=== PATIENT | male | born 1990 | race Caucasian/White ===

== ENCOUNTER 2017-10-21 10:21 | Inpatient (IN) | payer SELFPAY ==
[2017-10-21 10:38] LABS: Actual Bicarbonate (HCO3a) 22.5 mEq/L (22-26); Analyzer IN Cardio ER; Base Excess (BEa) -2.9 mEq/L (0 (+/-) 2.5); CO2 Tension 41.8 mmHg (35.0-45.0); Calcium, Ionized 1.2 mmol/L (1.12-1.30); Hematocrit-ABG 38.8 % (42.0-52.0); O2 Tension (PaO2) 52.9 mmHg (80.0-100.0); Puncture Site LRA; pH, Arterial 7.35 (7.35-7.45)
[2017-10-21 12:16] LABS: Hemoglobin 12.7 g/dL (14.0-18.0); Mean Corpuscular HGB CONC 32.1 g/dL (32.0-36.0); Mean Corpuscular Hemoglobin 30.4 pg (27.0-31.0); Mean Corpuscular Volume 94.7 fl (80.0-94.0); Mean Platelet Volume 6.7 fL (7.4-10.4); Platelet Count 157 thou/uL (130-400); RBC Distribution Width 12.6 % (11.5-14.5); Red Blood Cell (RBC) Count 4.16 mill/uL (4.70-6.10); White Blood Cell (WBC) Count 0.7 thou/uL (4.8-10.8)
[2017-10-21 12:22] LABS: Anion Gap 11 mmol/L (10-20); BUN (Urea Nitrogen) 21 mg/dL (8.9-20.6); Calc. Creatinine Clearance 0 mL/min (70-130); Calcium 7.8 mg/dL (7.8-10.44); Carbon Dioxide 21 mmol/L (22-29); Chloride 110 mmol/L (98-107); Estimated GFR-MDRD Greater than 90; Glucose 73 mg/dL (70-105); Magnesium 1.6 mg/dL (1.6-2.6); Sodium 138 mmol/L (136-145)
[2017-10-21 12:33] LABS: Band 16 % (5-11); Eosinophils 8 % (0-10); Lymphocytes 64 % (21-51); MDiff Complete? YES; Monocytes 12 % (0-10); PLT Morphology Comment Appears Adequate
[2017-10-21] MEDS ORDERED: Sodium Chloride 0.9% 1,000 ML IV SCH (16:00)
[2017-10-21 16:04] LABS: BF Color Red; Body Fluid Source THORACENTESIS FLD; Clarity Cloudy/Turbid (Clear); Tube # EDTA
[2017-10-21 16:05] LABS: RBC Count-Automated 49000 /cumm; WBC/NonHematic-Auto 9340 /cumm
[2017-10-21 16:22] LABS: Fluid, Triglycerides 11 mg/dL (Not Available); Pleural Fluid, Amylase Less than 30 U/L (Not Available); Pleural Fluid, Glucose 51 mg/dL; Pleural Fluid, LDH 759 U/L (Not Available); Pleural Fluid, Protein 2.3 g/dL
--- NOTE | 2017-10-21 16:23 | RAD ---
CHEST ONE VIEW: History: Status post thoracentesis. Comparison: 10-21-17 FINDINGS: Persistent opacification right hemithorax. No evidence of pneumothorax. Stable configuration of the c ardiac silhouette. Stable aeration of the left lung. IMPRESSION: 1. No pneumothorax. 2. Persistent opacification right hemithorax. POS: [facility]
[2017-10-21 16:41] LABS: BF Segmented Neutrophils 83 %; Cell Count Non Hematic 6 %; Eosinophils 3 %; Lymphocytes 8 %
[2017-10-21 16:45] LABS: HIV (1/2) Antibody/Antigen Non-Reactive (NonReactive); HIV 1/2 INDEX 0.21 S/CO (<1.00)
--- NOTE | 2017-10-21 16:51 | CON ---
DATE OF CONSULTATION: 10/21/2017 REASON FOR CONSULTATION: [facility] [place]. HISTORY OF PRESENT ILLNESS: This is a 27-year-old male, who has been sick for about a week. He pres ented to ER in [place] on Friday, complaining of shortness of breath. He had a flu test, which he says was negative. He told me that they did not fully rule out the possibility of influenza. He wa s not given any type of antibiotics or Tamiflu. He presented to the [facility] earlier today complaining of shortness of breath and fever. He was also having some right-sided chest pain. He had a chest x-ray performed, which showed a fairly significant right-sided infiltrate/effusion an d he was sent over here for further therapy. Because of hypoxemia, he has required BiPAP. PAST MEDICAL HISTORY: Essentially unremarkable. PAST SURGICAL HISTORY: Negative. SOCIAL HISTORY: He smokes about half a pack per day. He drinks about 5 beers per day. Does not use any illicit drugs. 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 He is . He has 2 children. ALLERGIES: None. MEDICATIONS: Prior to admission, he was taking dextromethorphan with codeine as needed for cough. REVIEW OF SYSTEMS: He has had subjective fever, chills, right-sided chest pain. No hematemesis, hem optysis, melena, hematochezia, hematuria, or dysuria. PHYSICAL EXAMINATION: VITAL SIGNS: Temperature is 98, heart rate 135, blood pressure 100/70, O2 sat 95% on 40% BiPAP. GENERAL: He is awake, alert, able to talk through the BiPAP mask without much difficulty. HEENT EXAM: Pupils react. Sclerae are anicteric. Oropharynx clear. NECK: Without adenopathy or JVD. LUNGS: He has diminished breath sounds and dullness to percussion in right base. The left side is f airly clear. CARDIAC: S1, S2 tachycardic. ABDOMEN: Soft, nontender. EXTREMITIES: No clubbing, cyanosis, or edema. LABORATORY DATA: White blood cell count 0.7, hemoglobin 12, hematocrit 39.4, platelet count 157. He has 16% bands, 64% lymphocytes. Blood gas pH 7.35, PCO2 of 41, PO2 of 53. Sodium 138, potassium 4, chloride 110, CO2 of 21, BUN 21, creatinine 0.8, glucose 73. Lactate 2.6, troponin 0.4. Chest x-ra y showed confluent right-sided infiltrate with effusion. The x-ray was personally reviewed by myself . ASSESSMENT: 1. Likely pneumococcal pneumonia with sepsis. 2. Severe leukopenia. 3. Mild renal dysfunction. 4. Acute hypoxic respiratory failure. 5. Possible pleural effusion. PLAN: 1. Diagnostic therapeutic right thoracentesis. Start broad-spectrum IV antibiotics to include Rocep hin, vancomycin and Zithromax. 2. I agree with HIV test. 3. Need to repeat toxicology screen, as he was previously positive for methamphetamines during an ER visit in August. 4. DVT prophylaxis with enoxaparin. 5. GI prophylaxis with Pepcid. 6. The patient needs to be in CCU rather than IMCU based on severity of illness.
[2017-10-21 17:00] LABS: Lactic Acid 3.3 mmol/L (0.5-2.2)
[2017-10-21] MEDS ORDERED: Ondansetron HCl/PF 4 MG/2 ML Vial IVP PRN (17:10)
[2017-10-21] MEDS ORDERED: Bisacodyl 5 MG TAB PO PRN (17:10)
[2017-10-21] MEDS ORDERED: Acetaminophen 650 MG Suppository PR PRN (17:10)
[2017-10-21] MEDS ORDERED: Ondansetron ODT 4 MG TAB PO PRN (17:10)
[2017-10-21] MEDS ORDERED: CCU Electrolyte Replacement 1 EACH FS SCH (17:15)
[2017-10-21] MEDS ORDERED: Potassium Phosphate 12 MMOL in Sodium Chloride 0.9% 250 ML 250 ML IV PRN (18:15)
[2017-10-21] MEDS ORDERED: CCU ELECTROLYTE REPLACEMENT PROTOCOL FS PRN (18:15)
[2017-10-21] MEDS ORDERED: Magnesium 2 GM/NS 0.9% 100 ML 2 GM in Premix Bag 1 BAG IVPB PRN (18:15)
[2017-10-21] MEDS ORDERED: Potassium Phosphate 15 MMOL in Sodium Chloride 0.9% 250 ML 250 ML IV PRN (18:15)
[2017-10-21] MEDS ORDERED: Magnesium Oxide 400 MG TAB PO PRN ×2 (18:15)
[2017-10-21] MEDS ORDERED: Potassium Chloride 40 MEQ in Premix Bag 1 BAG IVPB PRN (18:15)
[2017-10-21] MEDS ORDERED: Potassium Phosphate 9 MMOL in Sodium Chloride 0.9% 100 ML IVPB PRN (18:15)
[2017-10-21] MEDS ORDERED: Potassium Chloride 20 MEQ TAB PO PRN (18:15)
[2017-10-21] MEDS ORDERED: Potassium Chloride 40 MEQ in Sodium Chloride 0.9% 250 ML 250 ML IVPB PRN (18:15)
[2017-10-21] MEDS: Sodium Chloride 0.9% 1,000 ML IV SCH (18:18)
[2017-10-21] MEDS: cefTRIAXone\\ROCEPHIN 2 GM in Sodium Chloride 0.9% 100 ML IVPB SCH (18:26)
[2017-10-21 18:28] VITALS: BMI 24.9
[2017-10-21 18:38] LABS: Hemoglobin 12.6 g/dL (14.0-18.0); Mean Corpuscular HGB CONC 33.5 g/dL (32.0-36.0); Mean Corpuscular Hemoglobin 31.8 pg (27.0-31.0); Mean Corpuscular Volume 95.2 fl (80.0-94.0); Mean Platelet Volume 6.8 fL (7.4-10.4); Platelet Count 170 thou/uL (130-400); RBC Distribution Width 12.6 % (11.5-14.5); Red Blood Cell (RBC) Count 3.95 mill/uL (4.70-6.10); White Blood Cell (WBC) Count 1.5 thou/uL (4.8-10.8)
[2017-10-21 18:59] LABS: Band 50 % (5-11); Dohle Bodies SLIGHT; Eosinophils 2 % (0-10); Lymphocytes 11 % (21-51); MDiff Complete? YES; Metamyelocyte 3 % (0-0); Monocytes 4 % (0-10); Neutrophil 28 % (42-75); PLT Morphology Comment Appears Adequate; RBC Morphology Normal; Reactive Lymphocytes 2 % (0-10); Reflex for Review?? YES; Toxic Granulation MODERATE
[2017-10-21 19:09] LABS: ALT (SGPT) 22 U/L (8-55); AST (SGOT) 27 U/L (5-34); Albumin 2.8 g/dL (3.5-5.0); Alkaline Phosphatase 38 U/L (40-150); Anion Gap 12 mmol/L (10-20); BUN (Urea Nitrogen) 20 mg/dL (8.9-20.6); Bilirubin, Total 0.6 mg/dL (0.2-1.2); Calc. Creatinine Clearance 165 mL/min (70-130); Calcium 8.5 mg/dL (7.8-10.44); Carbon Dioxide 21 mmol/L (22-29); Chloride 105 mmol/L (98-107); Estimated GFR-MDRD Greater than 90; Globulin 2.6 g/dL (2.4-3.5); Glucose 71 mg/dL (70-105); Potassium 4.3 mmol/L (3.5-5.1); Protein, Total 5.4 g/dL (6.0-8.3); Sodium 134 mmol/L (136-145)
[2017-10-21] MEDS: Azithromycin 500 MG in Sodium Chloride 0.9% 250 ML 250 ML IVPB SCH (20:38)
[2017-10-21] MEDS: Famotidine 20 MG TAB PO SCH (20:43)
[2017-10-21] MEDS: Docusate 100 MG CAP PO SCH (20:43)
[2017-10-21] MEDS: Vancomycin HCl 1 GM in Premix Bag 1 BAG IVPB SCH (20:50)
[2017-10-22] MEDS: Sodium Chloride 0.9% 1,000 ML IV SCH ×2 (03:30→17:52)
[2017-10-22 04:51] LABS: Anion Gap 13 mmol/L (10-20); BUN (Urea Nitrogen) 18 mg/dL (8.9-20.6); Calc. Creatinine Clearance 174 mL/min (70-130); Calcium 8.8 mg/dL (7.8-10.44); Carbon Dioxide 20 mmol/L (22-29); Chloride 108 mmol/L (98-107); Estimated GFR-MDRD Greater than 90; Glucose 113 mg/dL (70-105); Potassium 4.4 mmol/L (3.5-5.1); Sodium 137 mmol/L (136-145)
[2017-10-22 04:53] LABS: Band 31 % (5-11); Lymphocytes 7 % (21-51); MDiff Complete? YES; Mean Corpuscular HGB CONC 33.4 g/dL (32.0-36.0); Mean Corpuscular Hemoglobin 31.7 pg (27.0-31.0); Mean Corpuscular Volume 94.8 fl (80.0-94.0); Mean Platelet Volume 7.3 fL (7.4-10.4); Monocytes 4 % (0-10); Neutrophil 58 % (42-75); Nucleated RBC 1 % (0); PLT Morphology Comment Appears Adequate; Platelet Count 156 thou/uL (130-400); RBC Distribution Width 12.6 % (11.5-14.5); Red Blood Cell (RBC) Count 3.47 mill/uL (4.70-6.10); White Blood Cell (WBC) Count 4.3 thou/uL (4.8-10.8)
--- NOTE | 2017-10-22 05:51 | HP ---
PRIMARY CARE PHYSICIAN: None. CHIEF COMPLAINT: Trouble breathing. HISTORY OF PRESENT ILLNESS: This is a 27-year-old white male without significant past medical histor y who presents with 1 week of illness. He started having cough, congestion, body aches about a week prior to admission, was seen at an Urgent Care in [place] 3 days ago and was diagnosed with a flu li ke syndrome with negative flu test. He was not given any antibiotics for Tamiflu, was sent home with symptomatic care, then he presented to the [facility] earlier today complaining of shor tness of breath. He also been having some fever earlier that day and some right-sided chest pain. T he patient was noted to be markedly hypoxic. He had chest x-ray which showed significant right-sided infiltrate or effusion and so he was put on oxygen and transferred over to our emergency room. In o ER, he first had to be on a full face mask in order to keep his oxygen levels up and eventually handy d to be transferred to BiP. He is doing well on that currently and keeping his oxygen saturation u p now. PAST MEDICAL HISTORY: None. PAST SURGICAL HISTORY: None. SOCIAL HISTORY: Patient smokes a half pack per day. He drinks 3 or more beers per day. He denies i llicit drug use, though he has had amphetamines and methamphetamines detected in his urine 2 months a go in [place]. ALLERGIES: No known drug allergies. MEDICATIONS: 1. Seroquel 25 mg at night. 2. Lorazepam 0.5 mg as needed. PAST PSYCHIATRIC HISTORY: 1. Anxiety. FAMILY HISTORY: No significant family medical history. REVIEW OF SYSTEMS: Constitutional: Positive for fevers and chills. Eyes: No double vision or blurred vision. ENT: H e has had congestion and runny nose. No sore throat. Cardiovascular: See HPI. No palpitations or racing heart. Pulmonary: See HPI. Gastrointestinal: No abdominal pain, no nausea or vomiting. He has had some watery diarrhea. Genitourinary: No dysuria or hematuria. Musculoskeletal: Generaliz ed muscle aches. No arthralgias. Skin: No rashes or other lesions. Neurologic: No numbness, ting ling or focal weakness. PHYSICAL EXAMINATION: VITAL SIGNS: Blood pressure 102/66, pulse 133, respirations 28 on BiPAP, O2 sat 95%, temperature 98. 2. GENERAL: This is a well-developed, well-nourished, white male in no apparent distress, now that he i s on BiPAP. HEENT: Pupils equal, round, and react to light. Oropharynx clear without lesions, erythema or exuda te. NECK: Supple, no lymphadenopathy, no thyroid nodules or enlargement, no JVD. HEART: Regular rhythm. He is tachycardic. PULMONARY: He does have decreased breath sounds in his right base along with some crackles there. H e has normal respiratory effort while he is on the BiPAP. ABDOMEN: Patient is tender to palpation in the right upper quadrant more than the left upper quadran t, mild guarding. Normoactive bowel sounds, no hepatosplenomegaly or other masses. EXTREMITIES: No clubbing, cyanosis or edema. SKIN: Without rashes or other lesions. NEUROLOGIC: He has intact strength in all extremities and no facial droop. LABORATORY: White blood cell count 0.7 with no reportable neutrophils, 16% bands, 64% lymphs, 12% mo nocytes. Hemoglobin 12.7, hematocrit 39.4, platelet count 157. Basic metabolic panel with a chlorid e of 110, carbon dioxide mildly low at 21, BUN of 21, the remainder is normal. Lactic acid was 2.6 o n presentation, it was still at 3.3 and recheck troponin was indeterminate at 0.040. Arterial blood gas on the 7 L simple mask did show pH of 7.35, pCO2 of 41, pO2 of 52.9. Patient's thoracentesis flu id did show elevated white blood cells of 9000, RBCs was 49,000. He had 83% neutrophils in the fluid , his fluid triglyceride was 11. LDH was 759, total pleural fluid was 2.3. HIV done in the emergenc y room was nonreactive. Chest x-ray: I did review the chest x-ray along with the radiologist's repo rt, it shows no pneumothorax and it did show the right hemithorax opacification of the base persistin g even after the thoracentesis. ASSESSMENT: 1. Acute hypoxic respiratory failure, now requiring BiPAP. The patient is being admitted to the ICU . 2. Community-acquired pneumonia with effusion, this has given the severity of the infection. This i s possibly a pneumococcal pneumonia. The patient has been started on antibiotics. In the emergency room, he will be getting vancomycin, azithromycin and ceftriaxone per Dr. Don's recommendations. He was also started on steroids. The patient is only able to be monitored very closely if he could decompensate and may need intubation overnight. 3. History of tobacco abuse. 4. History of regular alcohol intake. 5. History of amphetamine abuse. 6. Leukopenia, no evidence of HIV infection at this time, this is likely due to sequestering of all of his neutrophils and his chest cavity where there is concern that he may develop an empyema. 7. Gastrointestinal prophylaxis. Put the patient on Pepcid twice a day. 8. Deep venous thrombosis prophylaxis. We will put patient on prophylactic Lovenox. CODE STATUS: Patient is a FULL CODE.
[2017-10-22] MEDS ORDERED: Enoxaparin Sodium 40 MG/0.4 ML SYRINGE SC SCH (09:00)
[2017-10-22] MEDS: Enoxaparin Sodium 40 MG/0.4 ML SYRINGE SC SCH (09:07)
[2017-10-22] MEDS: Vancomycin HCl 1 GM in Premix Bag 1 BAG IVPB SCH ×2 (09:07→21:30)
[2017-10-22] MEDS: Famotidine 20 MG TAB PO SCH ×2 (09:07→21:29)
[2017-10-22] MEDS: Docusate 100 MG CAP PO SCH ×2 (09:08→21:30)
--- NOTE | 2017-10-22 09:08 | PRG ---
DATE OF SERVICE: 10/22/2017 A 35 minutes critical care time. SUBJECTIVE: The patient feels better this morning. He came off BiPAP about 1-1/2 hours ago. He is no longer having chest pain on the right side like he was yesterday. PHYSICAL EXAMINATION: VITAL SIGNS: His temperature is 98.3 with a T-max of 100.4, pulse 120, blood pressure 92/55. A 24 h our intake 2198, output 1475. HEENT: Unremarkable. NECK: Without adenopathy or JVD. LUNGS: He has diminished breath sounds in the right base compared to the left. Some dullness to per cussion in the right base. CARDIOVASCULAR: S1, S2 regular. ABDOMEN: Soft and nontender. EXTREMITIES: Without clubbing, cyanosis, or edema. LABORATORY DATA: Sodium 137, potassium 4.4, chloride 108, CO2 20, BUN 18, creatinine 0.7, glucose 11 3. White blood cell count is up to 4.3, hemoglobin 11, hematocrit 32.9, platelet count 156. HIV rasheeda t was nonreactive. The pleural fluid analysis demonstrated copious red blood cells and white blood c ells, 83% neutrophils, total protein 2.3, LDH 759, and glucose 51. ASSESSMENT: 1. Right lower lobe pneumonia - likely pneumococcal. 2. Peripneumonic pleural effusion. 3. Acute respiratory failure requiring mechanical ventilation. 4. Alcohol abuse. PLAN: 1. The patient can be transferred to intermediate care. I am not quite sure that he would not sd nue the BiPAP intermittently for the next 24 hours. Certainly symptom man, he appears better and I think his prognosis is good. 2. Repeat chest x-ray tomorrow to follow up pleural effusion. 3. Continue broad spectrum IV antibiotics to include azithromycin, vancomycin and Rocephin. This ca n be consolidated depending on culture results that come back tomorrow. 4. Deep venous thrombosis prophylaxis with Lovenox. 5. Gastrointestinal prophylaxis with Pepcid.
[2017-10-22] MEDS: Acetaminophen 325 MG TAB PO PRN (11:16)
--- NOTE | 2017-10-22 13:56 | PDOC.PN ---
- Subjective Encounter Start Date: 10/22/17 Encounter Start Time: 13:54 Subjective: Seen and examined feeling better--off Bipap for now - Objective Resuscitation Status: Resuscitation Status FULL:Full Resuscitation Vital Signs & Weight: Vital Signs (12 hours) Temp Pulse Resp Pulse Ox 10/22/17 12:00 98.5 F 10/22/17 11:00 98.5 F 10/22/17 10:57 126 H 35 H 100 10/22/17 08:00 98.4 F 117 H 25 H 100 10/22/17 07:41 99 10/22/17 07:38 117 H 25 H 99 10/22/17 07:00 98.4 F 10/22/17 04:00 98.3 F 10/22/17 02:36 115 H 10/22/17 02:34 115 H 29 H 100 Weight Weight 171 lb 4.787 oz Most Recent Monitor Data Heart Rate from ECG 119 NIBP 90/49 NIBP BP-Mean 65 Respiration from ECG 34 SpO2 96 I&O: 10/21/17 10/22/17 10/23/17 06:59 06:59 06:59 Intake Total 2198 1480 Output Total 1475 1470 Balance 723 10 Result Diagrams: 10/22/17 03:50 10/22/17 03:50 Phys Exam - Physical Examination Constitutional: NAD HEENT: PERRLA, moist MMs, sclera anicteric, TM's clear Neck: no nodes, no JVD, supple, full ROM Respiratory: no wheezing Cardiovascular: RRR, no significant murmur, no rub Gastrointestinal: soft, non-tender, no distention, positive bowel sounds Musculoskeletal: no edema, pulses present Dx/Plan (1) Pneumonia Code(s): J18.9 - PNEUMONIA, UNSPECIFIED ORGANISM Status: Acute (2) Respiratory failure Code(s): J96.90 - RESPIRATORY FAILURE, UNSP, UNSP W HYPOXIA OR HYPERCAPNIA Status: Acute (3) Alcohol abuse Code(s): F10.10 - ALCOHOL ABUSE, UNCOMPLICATED Status: Acute (4) Parapneumonic effusion Code(s): J18.9 - PNEUMONIA, UNSPECIFIED ORGANISM; J91.8 - PLEURAL EFFUSION IN OTHER CONDITIONS CLASSIFIED ELSEWHERE Status: Acute - Plan continue antibiotics, aids social worker, respiratory therapy, incentive spirometry Appreciate pulmonary input -: Counselling -: Monitor closely may still need Bipap in the next 24hrs * .
[2017-10-22] MEDS ORDERED: Lorazepam 0.5 MG TAB PO PRN (16:41)
[2017-10-22] MEDS: Azithromycin 500 MG in Sodium Chloride 0.9% 250 ML 250 ML IVPB SCH (18:30)
[2017-10-22] MEDS: cefTRIAXone\\ROCEPHIN 2 GM in Sodium Chloride 0.9% 100 ML IVPB SCH (18:30)
[2017-10-23] MEDS: Sodium Chloride 0.9% 1,000 ML IV SCH ×2 (02:44→08:09)
[2017-10-23] MEDS: Docusate 100 MG CAP PO SCH ×2 (08:04→20:42)
[2017-10-23] MEDS: Enoxaparin Sodium 40 MG/0.4 ML SYRINGE SC SCH (08:04)
[2017-10-23] MEDS: Famotidine 20 MG TAB PO SCH ×2 (08:04→20:43)
[2017-10-23] MEDS: Vancomycin HCl 1 GM in Premix Bag 1 BAG IVPB SCH (08:06)
--- NOTE | 2017-10-23 08:16 | RAD ---
PORTABLE CHEST 1 VIEW: Date: 10/23/17 Time: 0423 hours HISTORY: Respiratory distress. FINDINGS/IMPRESSION: Comparison made with exam of 10/21/17. There is continued opacification of the right mid and lower lung. Accompanying right effusion may be present. The heart size is normal. The left lung is clear. No pneumothoraces are identified. POS: [facility]
[2017-10-23] MEDS ORDERED: Cefdinir 300 MG CAP PO SCH (09:00)
[2017-10-23] MEDS ORDERED: FLU VACC QS2017-18 36 mo. & older 0.5 ML SYRINGE IM ONE (09:00)
--- NOTE | 2017-10-23 12:13 | PRG ---
DATE OF SERVICE: 10/23/2017 SUBJECTIVE: Mr. Scales has been examined. His records have been reviewed. OBJECTIVE: VITAL SIGNS: He is afebrile, heart rate is 96, respiratory rate is 18, he is 94% on room air, blood pressure 125/87. LUNGS: Remarkable for decreased breath sounds at his right base. HEART: Regular rhythm. ABDOMEN: Soft. LABORATORY DATA: White count is up to 4.3 yesterday. Electrolytes were essentially normal except fo r some mild hyperchloremia yesterday. Body fluids were remarkable for 9340 white cells, 49,000 red cells, 83% segs, pH 7.48, a protein of 2 .3, BUN and LDH 759. Cultures reviewed from the outside hospital showed pneumococcus growing out of 2 out of 2 cultures th at is a Pansensitive pneumococcus for now. I will keep him on Rocephin. I recommend transfer out of a monitored bed to a medical bed. I have recommended CT scanning of his chest just to make sure he does not have loculation, although the numbers would suggest that he is in the low-risk group for loculation. If he is stable overnight, we may consider discharging him tomor row on Augmentin for followup with a radiograph in 3-4 weeks.
--- NOTE | 2017-10-23 12:19 | CT ---
NONCONTRAST ENHANCED CT IMAGES CHEST: HISTORY: Ventilator dependent patient. FINDINGS: Noncontrast-enhanced CT of the chest demonstrates near-complete consolidation with airspace disease i n the right lower lobe. Areas of perihilar more central opacity is seen in the right middle lobe and inferior posterior aspect of the right upper lobe. Patchy areas of airspace opacity are seen in the central left upper lobe and more pronounced in the left lower lobe. No other significant abnormalit y is seen. IMPRESSION: Near-complete right lower lobe consolidation with extensive multilevel airspace opacities also presen t concerning for extensive pneumonia. POS: [facility]
--- NOTE | 2017-10-23 15:56 | PDOC.PN ---
- Subjective Encounter Start Date: 10/23/17 Encounter Start Time: 15:55 Subjective: seen and examined feeling ok - Objective Resuscitation Status: Resuscitation Status FULL:Full Resuscitation Vital Signs & Weight: Vital Signs (12 hours) Temp Pulse Resp BP Pulse Ox 10/23/17 15:43 91 20 10/23/17 10:47 90 14 10/23/17 08:24 98.2 F 96 18 125/87 94 L 10/23/17 07:54 98.2 F 92 18 94 L 10/23/17 07:20 92 14 10/23/17 04:00 98.5 F 98 26 H 107/72 95 Weight Weight 184 lb 1 oz Most Recent Monitor Data Heart Rate from ECG 124 NIBP 93/55 NIBP BP-Mean 70 Respiration from ECG 17 SpO2 97 I&O: 10/22/17 10/23/17 10/24/17 06:59 06:59 06:59 Intake Total 2198 4120 Output Total 1475 4470 Balance 723 -350 Result Diagrams: 10/22/17 03:50 10/22/17 03:50 Phys Exam - Physical Examination Constitutional: NAD HEENT: PERRLA, moist MMs, sclera anicteric, TM's clear Neck: no nodes, no JVD, supple, full ROM Respiratory: no wheezing, no rales, no rhonchi, clear to auscultation bilateral Cardiovascular: RRR, no significant murmur, no rub Gastrointestinal: soft, non-tender, no distention, positive bowel sounds Musculoskeletal: no edema, pulses present Dx/Plan (1) Pneumonia Code(s): J18.9 - PNEUMONIA, UNSPECIFIED ORGANISM Status: Acute (2) Respiratory failure Code(s): J96.90 - RESPIRATORY FAILURE, UNSP, UNSP W HYPOXIA OR HYPERCAPNIA Status: Acute (3) Alcohol abuse Code(s): F10.10 - ALCOHOL ABUSE, UNCOMPLICATED Status: Acute (4) Parapneumonic effusion Code(s): J18.9 - PNEUMONIA, UNSPECIFIED ORGANISM; J91.8 - PLEURAL EFFUSION IN OTHER CONDITIONS CLASSIFIED ELSEWHERE Status: Acute - Plan continue antibiotics, respiratory therapy, DVT proph w/heparin As per pulmonary patient can transfer to Medical -: CT scan of the chest looks bad!! -: D/c IVF * .
[2017-10-23] MEDS: Acetaminophen 325 MG TAB PO PRN (16:13)
[2017-10-23] MEDS ORDERED: Azithromycin 250 MG TAB PO SCH (18:00)
[2017-10-23] MEDS ORDERED: cefTRIAXone\\ROCEPHIN 2 GM in Sodium Chloride 0.9% 100 ML IVPB SCH (18:00)
[2017-10-24] MEDS ORDERED: predniSONE 20 MG TAB PO SCH (08:00)
[2017-10-24] MEDS: Docusate 100 MG CAP PO SCH (09:51)
[2017-10-24] MEDS: Enoxaparin Sodium 40 MG/0.4 ML SYRINGE SC SCH (09:51)
[2017-10-24] MEDS: Famotidine 20 MG TAB PO SCH (09:52)
--- NOTE | 2017-10-24 11:02 | PDOC.PN ---
- Subjective Encounter Start Date: 10/24/17 Encounter Start Time: 11:00 Subjective: seen and examined noted to be febrile today - Objective Resuscitation Status: Resuscitation Status FULL:Full Resuscitation Vital Signs & Weight: Vital Signs (12 hours) Temp Pulse Resp BP Pulse Ox 10/24/17 10:49 70 16 10/24/17 07:55 100.2 F H 75 20 95 10/24/17 07:32 100.2 F H 75 20 108/70 95 10/24/17 07:20 96 10/24/17 07:15 77 20 96 10/24/17 03:00 98.5 F 59 L 18 109/63 96 10/24/17 02:38 89 16 10/24/17 00:00 70 20 108/66 95 Weight Weight 186 lb 4 oz Most Recent Monitor Data Heart Rate from ECG 124 NIBP 93/55 NIBP BP-Mean 70 Respiration from ECG 17 SpO2 97 I&O: 10/23/17 10/24/17 10/25/17 06:59 06:59 06:59 Intake Total 4120 4280 Output Total 4470 Balance -350 4280 Result Diagrams: 10/22/17 03:50 10/22/17 03:50 Phys Exam - Physical Examination Constitutional: NAD HEENT: PERRLA, moist MMs, sclera anicteric, TM's clear, oral pharynx no lesions Neck: no nodes, no JVD, supple, full ROM Respiratory: no wheezing, no rales, no rhonchi, clear to auscultation bilateral Cardiovascular: RRR, no significant murmur, no rub Gastrointestinal: soft, non-tender, no distention, positive bowel sounds Dx/Plan (1) Pneumonia Code(s): J18.9 - PNEUMONIA, UNSPECIFIED ORGANISM Status: Acute (2) Respiratory failure Code(s): J96.90 - RESPIRATORY FAILURE, UNSP, UNSP W HYPOXIA OR HYPERCAPNIA Status: Acute (3) Alcohol abuse Code(s): F10.10 - ALCOHOL ABUSE, UNCOMPLICATED Status: Acute (4) Parapneumonic effusion Code(s): J18.9 - PNEUMONIA, UNSPECIFIED ORGANISM; J91.8 - PLEURAL EFFUSION IN OTHER CONDITIONS CLASSIFIED ELSEWHERE Status: Acute (5) Fever Code(s): R50.9 - FEVER, UNSPECIFIED Status: Acute - Plan plan discussed w/ family, continue antibiotics, PT/OT, social work assistant, respiratory therapy May need to defer discharge due to fever developed this morning -: Consider ID consult on this case -: Pulmonary following * .
[2017-10-24 12:12] VITALS: BP 133/78; TEMP 99.3
--- NOTE | 2017-10-24 22:20 | PRG ---
DATE OF SERVICE: 10/24/2017 SUBJECTIVE: Mr. Scales did well overnight. He is walking around the ICU, doing laps, in no distress on no oxygen. LUNGS: He still has dramatically diminished breath sounds at his right base. He has some fine crack les at his left base. HEART: Regular rhythm. ABDOMEN: Soft. VITAL SIGNS: Have been stable. His temperature max was 100.2. We will switch him to Augmentin 875 twice a day. We will take this for 2 weeks and will take 20 of p rednisone for 8 days, 10 of prednisone as a nebulizer at home with some albuterol and he can do these treatments in the morning when he wakes up. There is no reason to keep him in the hospital longer g iven his clinical condition. We will see him in 4-6 weeks and repeat a radiograph.
--- NOTE | 2017-10-28 13:24 | DIS ---
For details of the history and physical and the consultative notes, please refer to dictations on rec ord. SUMMARY: A 27-year-old gentleman who presented with shortness of breath, got diagnosed with pretty s ignificant right-sided infiltrate/pneumonitis. The patient was admitted with sepsis in the context o f pneumonia and having been very hypoxic, decision was taken to transfer this patient to ICU and plac ed on BiPAP. The patient was followed actively during this hospitalization by the Pulmonary and Crit ical Care Service. He was placed on broad-spectrum antibiotics and with improvement in the clinical condition, decision was taken to transition this patient over to Augmentin with the plan to follow up with manufacturing test technician in 4 weeks. The patient is to be on this antibiotic for 2 weeks as well as nebul izer treatment and steroid. DISCHARGE MEDICATIONS: The patient was discharged on the following medications: Augmentin 875 mg fo r 2 weeks, prednisone 20 mg daily for 12 days and then 10 mg for 8 days. For the details of the physical findings, refer to the notes that I already documented that day for t he physical examination of this patient. Total time spent including [id number] encounter with this patient totaled 31 minutes.
--- NOTE | 2017-11-21 14:26 | PQF ---
JACOB DIALLO [facility] [id number] [facility] [id number] CLINICAL DOCUMENTATION CLARIFICATION FORM: POST DISCHARGE Please exercise your independent, professional judgment in responding to the clarification form. Clinical indicators are provided on the bottom of this form for your review. Thank you. Please check appropriate box(s): [ ] Sepsis due to: (Pna, UTI, gangrenous gall bladder, etc.) [ ] Severe sepsis with acute organ dysfunction of: (Examples: respiratory failure, encephalopathy, acute kidney failure, other) [ ] Localized infection without sepsis [ ] Other diagnosis [ ] Unable to determine In addition, please specify: Present on Admission (POA): [ ] Yes [ ] No [ ] Unable to determine PULM CONSULT; "Likely Pneumococcal pneumonia with Sepsis, acute hypoxic respiratory failure." "Start broad-spectrum antibiotics to include Rocephin, vancomycin, and Zithromax. Needs to be in CCU rather than IMCU based on severity of illness." LAB; WBC 0.7 with no reportable neutrophils, 16% bands, 64% lymphs, 12% monocytes. "Thoracentesis fluid did show elevated white blood cells of 9000, RBCs was 49, 000. He had 83% neutrophils in the fluid." CLINICAL INDICATORS - SIGNS / SYMPTOMS / LABS Respiratory rate >22/min, Acute hypoxic respiratory failure WBC count (>12,000/mm^4 or <4000/mm^3 or 10% neuts, 10% bands) RISK FACTORS Pneumococcal Pneumonia Pleural effusion Smoker/Tobacco TREATMENTS: Initiation Sepsis Protocol Thoracentesis ICU Daily CBC Blood/sputum Pulmonary Consult IV antibiotics - broad spectrum IV Fluids BIPAP (This form is maintained as a part of the permanent medical record) 2014 [employer]. All Rights Reserved [email or web address] [phone] BJORN
== END 2017-10-24 13:45 | disposition home or self-care (01) | DRG 871 ==
LOC: ERS 10:21 → CCU 12:15 → IMCU/EMU 10-22 19:51
PROVIDERS: ADMIT Emergency Medicine; ATTEND Emergency Medicine
PROC: 0W993ZX Drainage of Right Pleural Cavity, Percutaneous Approach, Diagnostic (ICD-10-PCS; principal; 2017-10-21)
PROC: 5A09357 Assistance with Respiratory Ventilation, Less than 24 Consecutive Hours, Continuous Positive Airway Pressure (ICD-10-PCS; 2017-10-21)
DX: A40.3 Sepsis due to Streptococcus pneumoniae (principal); J13 Pneumonia due to Streptococcus pneumoniae; J96.01 Acute respiratory failure with hypoxia; J91.8 Pleural effusion in other conditions classified elsewhere; F17.210 Nicotine dependence, cigarettes, uncomplicated; F10.10 Alcohol abuse, uncomplicated; N28.9 Disorder of kidney and ureter, unspecified; Z23 Encounter for immunization
CPT/HCPCS: 36415; 71010; 71250; 80048; 82150; 82805; 82945; 83605; 83615; 83735; 83986; 84157; 84478; 85025; 85060; 87070; 87116; 87205; 87206; 87389; 88112; 88305; 89051; 93005; 94640; 94660; 94760; 96360; 96361; A4216; J0456; J0696; J1642; J1650; J2920; J3370; J3411; J7050; J7620

== ENCOUNTER 2017-11-03 09:38 | Inpatient (IN) | payer MEDICAID, SELFPAY ==
[2017-11-03] MEDS ORDERED: Piperacillin/Tazobactam 4.5 GM in Sodium Chloride 0.9% 100 ML IVPB SCH (12:15)
--- NOTE | 2017-11-03 14:44 | HP ---
DATE OF ADMISSION: 11/03/2017 CHIEF COMPLAINT: Chest pain with shortness of breath. HISTORY OF PRESENT ILLNESS: This is a 27-year-old young white male with known recent history of hosp italization with right pleural effusion and pneumonia. The patient was recently admitted 10 days ago , after he had paracentesis done for his right pleural effusion, which showed serosanguineous fluid a t that time. The patient was admitted at that time with right lung pneumonia following influenza A i nfection. The patient was seen by one of the intensivists over here, and as the effusion was getting better, the patient was discharged home with oral antibiotic with Augmentin of 875 mg twice a day. Patient has been taking the medication as recommended. For the past 2 days, he is noticing worsening pain in his right chest and it became very uncomfortable and he developed a fever of 101 and he went to hospital at [place] where the patient from the ER was transferred, because of his recent hospita lization, back to [facility]. The patient was seen here, he was alert and oriented, interac tive, in no acute distress. He had an elevated white count of 15,000 and bandemia of 31. He did men tion that he had fever, but he looked very comfortable here, as he got a morphine pain medication. T he patient was also sent home during the last hospitalization on prednisolone of 10 mg, which could a lso be causing the elevation of the white count. The repeat chest x-ray, which was done at [place], showed an evidence of persistent right pleural effusion, but this was much better than the last day of discharge on . PAST MEDICAL HISTORY: Recent hospitalization for right lung pneumonia 10 days ago. PAST SURGICAL HISTORY: None. SOCIAL HISTORY: The patient is known smoker, smokes a half pack a day. No history of alcohol, no hi story of illicit drug use. He lives with his and is accompanied by his today. ALLERGIES: No known drug allergies. MEDICATIONS: 1. Augmentin. 2. Prednisolone 10 mg p.o. daily, tapered dose. 3. Seroquel. 4. Lorazepam 0.5 mg. PAST PSYCHIATRIC HISTORY: None. FAMILY HISTORY: No significant family history of coronary artery disease or no other family history was noted with premature deaths. REVIEW OF SYSTEMS: All 10 systems reviewed with the patient thoroughly and found to be negative at t his time. The following complete review of systems was negative, unless otherwise mentioned in the H PI or below: Constitutional: Weight loss or gain, sense of well-being, ability to conduct usual act ivities, exercise tolerance. Skin/Breast: Rash, itching, changes in hair growth or loss, nail beard es, breast lumps, tenderness, swelling, nipple discharge. Head: Headaches (location, time of onset, duration, precipitating factors), vertigo, lightheadedness, injury. Eyes: Vision, double vision, t earing, blind spots, pain. ENT/Mouth: Nose bleeding, colds, obstruction, discharge, dental difficul ties, gingival bleeding, dentures, neck stiffness, pain, tenderness, masses in thyroid or other areas . Cardiovascular: Precordial pain, substernal distress, palpitations, syncope, dyspnea on exertion, orthopnea, nocturnal paroxysmal dyspnea, edema, cyanosis, hypertension, heart murmurs, varicosities, phlebitis, claudication. Respiratory: Pain, shortness of breath, wheezing, stridor, cough, hemopty sis, fever or night sweats. Gastrointestinal: Poor appetite, dysphagia, indigestion, abdominal pain , heartburn, eructation, nausea, vomiting, hematemesis, jaundice, constipation, or diarrhea, abnormal stools (donald-colored, tarry, bloody, greasy, foul smelling), flatulence, hemorrhoids, recent changes in bowel habits. Genitourinary: Urgency, frequency, dysuria, nocturia, hematuria, polyuria, oligur ia, unusual (or change in) color of urine, stones, hesitancy, change in size of stream, dribbling, ac krysta retention or incontinence, libido, potency. Musculoskeletal: Pain, swelling, redness or heat of muscles or joints, limitation, of motion, muscular weakness, atrophy, cramps. Neurologic/Psychiatri c: Convulsions, paralyses, tremor, incoordination, paresthesias, difficulties with memory of speech, sensory or motor disturbances, or muscular coordination (ataxia, tremor), emotional problems, anxiet y, depression, previous psychiatric care, unusual perceptions, hallucinations. Allergy/Immunologic: Skin rash, anemia, bleeding tendency, polydipsia, polyuria, intolerance to heat or cold. PHYSICAL EXAMINATION: VITAL SIGNS: Blood pressure is 98/57, heart rate is 88, respiratory rate is 18, saturation 98% on ro om air. GENERAL: The patient is moderately built and moderately nourished. He does not appear to be in acut e distress at this time. Alert and oriented x3. HEENT: Atraumatic, normocephalic. PERRLA. Extraocular movements were intact. Oral mucosa pink and moist. CARDIOVASCULAR: S1, S2 normal. No murmurs, rubs, or gallops. LUNGS: Bilateral air entry was equal. No wheezing, no crackles. ABDOMEN: Soft, nontender. No guarding, no rebound tenderness. Bowel sounds normal. MUSCULOSKELETAL: No calf tenderness. No pedal edema. No joint tenderness, no joint swelling. SKIN: No cyanosis, no erythema, no rash, no pallor. CRANIAL NERVOUS SYSTEM: Cranial nerve examination II-XII intact. No focal deficits were noted. LABORATORY DATA: Labs showed WBC of 15.3, hemoglobin is 12.2, hematocrit 36.9, bands are 1%. His pl atelets are 803. Sodium is 136, potassium is 3.4, chloride is 105, BUN is 11, creatinine is 0.68. U A was negative for any urinary tract infection. Chest x-ray was done today in the morning at [facility], showed a worsening since 10/30/2017. It sh owed airspace disease in the right lower lobe, worse since 10/30/2017 and a right pleural effusion is seen. There was no new pneumothorax identified. ASSESSMENT AND PLAN: 1. Acute right pleural effusion. 2. Sepsis. 3. Right lung pneumonia. 4. Acute hypokalemia. 5. Severe pleuritic chest pain. PLAN: 1. Plan is to start the patient on IV antibiotics with Zosyn and vancomycin at this time and we will do a lateral right decubitus film to look for any layering of the effusion to see if the fluids can be tapped again. We will consult Pulmonary. Dr. Pat is environmental marketer, and we will consult him, as shanda thompson needed a thoracentesis during the last admission and has elevated white count compared to the admission. We will closely monitor the patient on the medical floor with a q.4 hour vitals. 2. Patient has low blood pressures in the ER. We will start the patient on normal saline at 100 mL an hour. We will closely monitor his blood pressures to see if the patient would be going into sepsi s or septic shock. Patient is having good urine output and has good orientation at this time. 3. The patient had evidence of moderate dehydration. We will closely monitor this patient. 4. The patient has pleuritic chest pain, which is relieved with morphine. We reassured the patient the pain could be coming from the right pleural effusion, which may need to be tapped if the lateral decubitus film shows more than 2 cm of fluid collection. We can do this for diagnostic purposes and get the cultures. We will send for blood cultures and look for any evidence of sepsis worsening. 5. DVT prophylaxis, is SCDs. I spent 70 minutes with this patient.
--- NOTE | 2017-11-03 15:00 | RAD ---
RADIOGRAPH CHEST 1 VIEW: Date: 11-03-2017 Time: 1:51 p.m. HISTORY: Right pleural effusion. COMPARISON: Two view study of 11-03-2017 at 7:14 a.m. FINDINGS: This is a right lateral decubitus view. The small right pleural effusion freely layers. Again noted a re the airspace densities throughout the right lower lobe. IMPRESSION: 1. Small, freely-layering right pleural effusion. 2. Right lower lobe pneumonia. ROSE POS: PETRA
[2017-11-03] MEDS ORDERED: Ondansetron HCl/PF 4 MG/2 ML Vial IVP PRN (15:05)
[2017-11-03] MEDS ORDERED: Ondansetron ODT 4 MG TAB PO PRN (15:05)
[2017-11-03] MEDS ORDERED: HYDROcodone/Acetaminophen 5/325 mg Tablet PO PRN (15:05)
[2017-11-03] MEDS ORDERED: Acetaminophen 325 MG TAB PO PRN (15:05)
[2017-11-03] MEDS ORDERED: Bisacodyl 5 MG TAB PO PRN (15:05)
[2017-11-03] MEDS: Sodium Chloride 0.9% 1,000 ML IV SCH (15:18)
[2017-11-03 15:42] VITALS: BMI 24.4
[2017-11-03] MEDS: HYDROcodone/Acetaminophen 7.5/325 mg Tablet PO PRN ×2 (17:29→21:02)
[2017-11-03] MEDS ORDERED: Vancomycin HCl 1.25 GM in Sodium Chloride 0.9% 250 ML 250 ML IVPB SCH (19:00)
[2017-11-03] MEDS: Piperacillin/Tazobactam 4.5 GM in Sodium Chloride 0.9% 100 ML IVPB SCH (19:29)
[2017-11-03] MEDS ORDERED: Vancomycin HCl 1,000 GM in Sodium Chloride 0.9% 250 ML 250 ML IVPB SCH (21:00)
[2017-11-03] MEDS: Docusate 100 MG CAP PO SCH (21:02)
[2017-11-03] MEDS: Famotidine 20 MG TAB PO SCH (21:05)
--- NOTE | 2017-11-04 00:09 | OP ---
DATE OF SERVICE: 11/03/2017 SERVICE: Pulmonary Medicine. PROCEDURE: Right-sided pleural drainage with catheter insertion, under ultrasound guidance. CONSENT: Risks and benefits of the procedure were explained to the patient. All questions were answ ered and alternative options explained. STAFF PHYSICIAN: Memo Beard M.D. MEDICATIONS USED: Lidocaine 1% without epinephrine, total quantity 10 mL. PREOPERATIVE DIAGNOSES: 1. Pleural effusion. 2. Pleuritic chest discomfort. POSTPROCEDURE DIAGNOSES: 1. Pleural effusion. 2. Pleuritic chest discomfort. DESCRIPTION OF THE PROCEDURE: A timeout was performed by the procedure team and patient. The patien t was positively identified using name and date of . The procedure site was marked. Vital sign monitoring was accomplished by noninvasive hemodynamic monitoring, pulse oximetry, and telemetry. In the seated position, the right posterior hemithorax was examined using ultrasound probe. Diaphrag m and pleural fluid was easily identified. The skin was prepped and draped in usual sterile fashion and anesthetized with 1% lidocaine without epinephrine. A finder needle was inserted in the pleural space with return of cloudy bolivar pleural fluid. A pleural drainage catheter was inserted in the jani e location and 400 mL of pleural fluid was evacuated by syringe-pump technique. A sample was sent fo r analysis. Evacuation of fluid was terminated because the fluid stopped coming. At that time, the patient had increasing heaviness in his chest. At the end of the procedure, estimated pleural pressu res, measured by manometry, was -20 cm of pleural fluid. The intact catheter was withdrawn on exhala tion and a sterile dressing was applied. The patient has stable vitals throughout the entire procedu re. ESTIMATED BLOOD LOSS: Less than 1 mL. COMPLICATIONS: None.
[2017-11-04 00:13] LABS: Pleural Fluid, Protein 3.6 g/dL
[2017-11-04 00:21] LABS: Body Fluid Source THORACENTESIS FLD
[2017-11-04 00:22] LABS: BF Color Red; Clarity Cloudy/Turbid (Clear); RBC Background Count 0.002; RBC Count-Automated 34000 /cumm; Tube # EDTA; WBC/NonHematic-Auto 25100 /cumm
[2017-11-04 00:31] LABS: BF Segmented Neutrophils 84 %; Cell Count Non Hematic 8 %; Lymphocytes 8 %
[2017-11-04] MEDS: HYDROcodone/Acetaminophen 7.5/325 mg Tablet PO PRN ×4 (02:18→18:19)
[2017-11-04] MEDS: Piperacillin/Tazobactam 4.5 GM in Sodium Chloride 0.9% 100 ML IVPB SCH ×5 (02:19→21:54)
[2017-11-04] MEDS: Vancomycin HCl 1.25 GM in Sodium Chloride 0.9% 250 ML 250 ML IVPB SCH ×3 (02:20→18:21)
[2017-11-04 05:44] LABS: #Basophils 0.1 thou/uL (0.0-0.2); #Eosinphils 0.2 thou/uL (0.0-0.7); #Lymphocytes 2.4 thou/uL (1.20-3.40); #Monocytes 1.5 thou/uL (0.11-0.59); #Neutrophils 6.6 thou/uL (1.40-6.50); %Basophils 0.5 % (0.0-1.0); %Eosinophils 2.3 % (0.0-10.0); %Lymphocytes 22.5 % (21.0-51.0); %Monocytes 13.4 % (0.0-10.0); %Neutrophils 61.3 % (42.0-75.0); Hemoglobin 10.6 g/dL (14.0-18.0); Mean Corpuscular HGB CONC 31.9 g/dL (32.0-36.0); Mean Corpuscular Hemoglobin 30.6 pg (27.0-31.0); Mean Corpuscular Volume 95.9 fl (80.0-94.0); Mean Platelet Volume 5.5 fL (7.4-10.4); Platelet Count 645 thou/uL (130-400); RBC Distribution Width 13.4 % (11.5-14.5); Red Blood Cell (RBC) Count 3.46 mill/uL (4.70-6.10); White Blood Cell (WBC) Count 10.8 thou/uL (4.8-10.8)
--- NOTE | 2017-11-04 05:56 | CON ---
DATE OF CONSULTATION: 11/03/2017 SERVICE: Pulmonary Medicine. REASON FOR CONSULTATION: Respiratory failure and pleural effusion. HISTORY OF PRESENT ILLNESS: The patient is a 27-year-old white male. Recently , he had community-acquired pneumonia, secondary to streptococcus. This was appropriately treated in the outpatient setting with Augmentin. The patient's inflammatory profile including fevers, cough, sputum production, and infectious symptoms all resolved. That being said, he continued to have persistent pleuritic-type chest discomfort. This is a sharp chest pain that gets worse with deep inspiration and prevents him from breathing deeply. One day prior to admission, he woke up first thing in the morning to horrendous discomfort. It prevented him from taking any kind of a deep breath and in order to get by, he had to pant for a period of time. This slowly got better as the day progressed. The following morning, however, he woke up with the same symptoms. As such, he presented to the emergency department because of the severe discomfort. He denies having any significant recrudescence in symptoms. He does not have any fevers, chills, nausea, vomiting, or sputum production. He does have a little bit of a cough, which is new. PAST MEDICAL HISTORY: None. PAST SURGICAL HISTORY: None. SOCIAL HISTORY: He smokes a half pack a day and has a 5-pack year history of smoking. He uses some alcohol and has previously tested positive for illicit drugs though he denies use of those things. He lives with his . He has no exposure to chemicals, dust, asbestos, or tuberculosis. ALLERGIES: No known drug allergies. MEDICATIONS: List of medications were reviewed. No updates were made at this time. FAMILY HISTORY: Noncontributory. REVIEW OF SYSTEMS: General, head, ears, eyes, nose, throat, cardiovascular, respiratory, GI, , musculoskeletal, neurologic, and skin is negative except as mentioned in the HPI. PHYSICAL EXAMINATION: VITAL SIGNS: Afebrile with a T-max of 100.2, pulse 100, blood pressure 107/56, respirations 20, saturation 99% on room air. GENERAL: The patient is awake, alert, in no apparent distress. LUNGS: Excellent air entry. There is no prolonged expiratory phase. I do not appreciate any E to A egophony or crackles. LABORATORY DATA: WBC 15.3, hemoglobin 12.2, platelets 803,000. Lymphocyte count has improved to 16%. Neutrophil count has returned to a normal range. There is no current bandemia as that the laboratory was performed previously. Comprehensive metabolic profile was unremarkable. His CRP is elevated, but we do not have the basis for comparison. Lactate is negative. Previous thoracentesis fluid studies were reviewed. Of note, he had a low glucose and an elevated LDH within normal pH. The cell type predominantly was neutrophilic. HIV 1 and 2 and the previous fungal stain was negative. The pleural fluid cultures were negative. Blood cultures x2 were positive for Streptococcus pneumoniae. IMAGIN. The lateral decubitus x-rays demonstrate a small freely layering right pleural effusion. There was also a right lower lobe infiltrate. 2. Chest x-ray demonstrates right lower lobe infiltrate, which is evolving. There appears to be a little volume loss on that side as well. There was a small pleural effusion are evident. ASSESSMENT: 1. Pleuritic chest pain. 2. Recent community-acquired pneumonia and bacteremia secondary to Streptococcus pneumoniae. 3. Systemic inflammatory response syndrome, recurring. 4. Pleural effusion, small. PLAN: After discussing the risks and benefits of continued observation versus proceeding with the procedure, the patient has decided to proceed with a thoracentesis to verify this space is still sterile. Broad-spectrum antibiotics will be continued, but I am not actually convinced that a new infectious process is present based on his presentation. For the most part, the thing that brought him back to the hospital was pleuritic chest discomfort and had nothing to do with an infectious or inflammatory profile. Many of these features are likely slowly resolving from his previous severe infection. 70 minutes have been devoted to this patient in various activities. For at least half of this time, I was at the bedside in direct patient interaction or coordinating care with the care team. For the remainder of the time I was immediately available to the patient in the hospital unit. BJORN
[2017-11-04 06:13] LABS: ALT (SGPT) 61 U/L (8-55); AST (SGOT) 38 U/L (5-34); Albumin 2.7 g/dL (3.5-5.0); Alkaline Phosphatase 90 U/L (40-150); Anion Gap 9 mmol/L (10-20); BUN (Urea Nitrogen) 7 mg/dL (8.9-20.6); Bilirubin, Total 0.9 mg/dL (0.2-1.2); Calc. Creatinine Clearance 197 mL/min (70-130); Calcium 8.7 mg/dL (7.8-10.44); Carbon Dioxide 25 mmol/L (22-29); Chloride 107 mmol/L (98-107); Estimated GFR-MDRD Greater than 90; Globulin 2.9 g/dL (2.4-3.5); Glucose 94 mg/dL (70-105); Potassium 4.2 mmol/L (3.5-5.1); Protein, Total 5.6 g/dL (6.0-8.3); Sodium 137 mmol/L (136-145)
[2017-11-04] MEDS: Sodium Chloride 0.9% 1,000 ML IV SCH ×3 (07:08→23:26)
[2017-11-04] MEDS: Famotidine 20 MG TAB PO SCH ×2 (08:35→21:59)
[2017-11-04] MEDS: Docusate 100 MG CAP PO SCH ×2 (08:35→21:55)
--- NOTE | 2017-11-04 14:27 | PDOC.PN ---
- Subjective Encounter Start Date: 11/04/17 Encounter Start Time: 08:00 Patient is seen today, he had Pleural Tap done yesterday, his pain is better, No fever. No chest pain. - Objective Resuscitation Status: Resuscitation Status FULL:Full Resuscitation MAR Reviewed: Yes Vital Signs & Weight: Vital Signs (12 hours) Temp Pulse Resp BP Pulse Ox 11/04/17 12:06 99.0 F 87 20 112/57 L 11/04/17 08:10 98.9 F 89 18 107/54 L 97 11/04/17 07:54 98.5 F 88 18 95 Weight Weight 180 lb Result Diagrams: 11/04/17 05:11 11/04/17 05:11 Radiology Reviewed by me: Yes EKG Reviewed by me: Yes Phys Exam - Physical Examination HEENT: PERRLA, moist MMs, oral pharynx no lesions Neck: no nodes, no JVD Respiratory: no rales, no rhonchi, wheezing present Cardiovascular: RRR, no significant murmur Gastrointestinal: soft, non-tender Musculoskeletal: no edema, pulses present Dx/Plan (1) Parapneumonic effusion Code(s): J18.9 - PNEUMONIA, UNSPECIFIED ORGANISM; J91.8 - PLEURAL EFFUSION IN OTHER CONDITIONS CLASSIFIED ELSEWHERE Status: Acute (2) Parapneumonic effusion Code(s): J18.9 - PNEUMONIA, UNSPECIFIED ORGANISM; J91.8 - PLEURAL EFFUSION IN OTHER CONDITIONS CLASSIFIED ELSEWHERE Status: Acute (3) Alcohol abuse Code(s): F10.10 - ALCOHOL ABUSE, UNCOMPLICATED Status: Acute - Plan cont current plan of care, continue antibiotics, PT/OT, incentive spirometry, DVT proph w/lovenox * . Plan: Pulmonary is consuulted and Did thoracentesis with Blody fluid showing Exudative Pleural fluid suggestive of Infection with High WBC, will continue on IV antibiotics and follow their recommedations, pt is On Zosyn/ vancomycin. Pain is controlled by morphine 4mg IV q 4 hrs PRN, unable to control with Oral narcotics H/o Alcohol abuse no withdralws noted. Will continue pulmonary toilet with Incetive spirometry, Duonebs and Albuteral. DVT prophylaxis/ PT/OT. Dispo dischagre Home in 2-3 days or when cultures from body fluid are back. - Discharge Day Encounter end time: 08:35 Review of Systems - Review of Systems Constitutional: negative: fever, chills, sweats, weakness, malaise, other Eyes: negative: Pain, Vision Change, Conjunctivae Inflammation, Eyelid Inflammation, Redness, Other ENT: negative: Ear Pain, Ear Discharge, Nose Pain, Nose Discharge, Nose Congestion, Mouth Pain, Mouth Swelling, Throat Pain, Throat Swelling, Other Respiratory: Shortness of Breath, Pleuritic Pain. negative: Cough, Dry, Hemoptysis, SOB with Excertion, Sputum, Wheezing Cardiovascular: negative: chest pain, palpitations, orthopnea, paroxysmal nocturnal dyspnea, edema, light headedness, other Gastrointestinal: negative: Nausea, Vomiting, Abdominal Pain, Diarrhea, Constipation, Melena, Hematochezia, Other Genitourinary: negative: Dysuria, Frequency, Incontinence, Hematuria, Retention , Other Musculoskeletal: negative: Neck Pain, Shoulder Pain, Arm Pain, Back Pain, Hand Pain, Leg Pain, Foot Pain, Other Skin: negative: Rash, Lesions, Tramaine, Bruising, Other Neurological: negative: Weakness, Numbness, Incoordination, Change in Speech, Confusion, Seizures, Other - Medications/Allergies Allergies/Adverse Reactions: Allergies Allergy/AdvReac Type Severity Reaction Status Date / Time No Known Allergies Allergy Verified 11/03/17 15:51 Medications: Current Medications Acetaminophen (Tylenol) 650 mg PO Q4H PRN PRN Reason: Headache/Fever or Pain Hydrocodone Bitart/Acetaminophen ([place] 5/325) 1 tab PO Q4H PRN PRN Reason: Moderate Pain (4-6) Hydrocodone Bitart/Acetaminophen ([place] 7.5/325) 1 tab PO Q4H PRN PRN Reason: Moderate Pain (4-6) 2ND LINE Last Admin: 11/04/17 14:08 Dose: 1 tab Bisacodyl (Dulcolax) 10 mg PO DAILYPRN PRN PRN Reason: Constipation Docusate Sodium (Colace) 100 mg PO BID [facility] Last Admin: 11/04/17 08:35 Dose: Not Given Famotidine (Pepcid) 20 mg PO BID [facility] Last Admin: 11/04/17 08:35 Dose: 20 mg Sodium Chloride (Normal Saline 0.9%) 1,000 mls @ 100 mls/hr IV .Q10H [facility] Last Admin: 11/04/17 07:19 Dose: 1,000 mls Vancomycin HCl 1.25 gm/ Sodium (Chloride) 250 mls @ 166.667 mls/hr IVPB 0200, 1000,1800 [facility] Last Admin: 11/04/17 10:07 Dose: 250 mls Piperacillin Sod/Tazobactam (Sod 4.5 gm/ Sodium Chloride) 100 mls @ 200 mls/hr IVPB 0200,0800,1400,2000 [facility] Last Admin: 11/04/17 14:09 Dose: 100 mls Miscellaneous Medication (Pharmacy To Dose) 1 each IVPB PRN PRN PRN Reason: . Ondansetron HCl (Zofran Odt) 4 mg PO Q6H PRN PRN Reason: Nausea/Vomiting Ondansetron HCl (Zofran) 4 mg IVP Q6H PRN PRN Reason: Nausea/Vomiting Quetiapine Fumarate (Seroquel) 100 mg PO HS [facility]
[2017-11-04] MEDS: Morphine 5 mg/5 ml in 0.9% NaCl/PF SYRINGE SLOW IVP PRN ×3 (15:04→23:22)
[2017-11-04 17:20] LABS: Vancomycin, Trough 15.8 ug/mL
[2017-11-05] MEDS: Vancomycin HCl 1.25 GM in Sodium Chloride 0.9% 250 ML 250 ML IVPB SCH ×2 (02:21→11:01)
[2017-11-05 06:39] LABS: #Basophils 0.1 thou/uL (0.0-0.2); #Eosinphils 0.2 thou/uL (0.0-0.7); #Lymphocytes 2.4 thou/uL (1.20-3.40); #Monocytes 1.2 thou/uL (0.11-0.59); #Neutrophils 6.8 thou/uL (1.40-6.50); %Basophils 0.5 % (0.0-1.0); %Eosinophils 1.9 % (0.0-10.0); %Lymphocytes 22.6 % (21.0-51.0); %Monocytes 11.1 % (0.0-10.0); %Neutrophils 63.9 % (42.0-75.0); Hemoglobin 10.9 g/dL (14.0-18.0); Mean Corpuscular Hemoglobin 30.7 pg (27.0-31.0); Mean Platelet Volume 5.4 fL (7.4-10.4); Platelet Count 669 thou/uL (130-400); RBC Distribution Width 13.2 % (11.5-14.5); Red Blood Cell (RBC) Count 3.55 mill/uL (4.70-6.10); White Blood Cell (WBC) Count 10.7 thou/uL (4.8-10.8)
[2017-11-05 06:50] LABS: ALT (SGPT) 86 U/L (8-55); AST (SGOT) 57 U/L (5-34); Albumin 2.8 g/dL (3.5-5.0); Alkaline Phosphatase 100 U/L (40-150); Anion Gap 10 mmol/L (10-20); BUN (Urea Nitrogen) 6 mg/dL (8.9-20.6); Bilirubin, Total 0.5 mg/dL (0.2-1.2); Calc. Creatinine Clearance 188 mL/min (70-130); Calcium 9.1 mg/dL (7.8-10.44); Carbon Dioxide 27 mmol/L (22-29); Chloride 104 mmol/L (98-107); Estimated GFR-MDRD Greater than 90; Globulin 3.2 g/dL (2.4-3.5); Glucose 99 mg/dL (70-105); Potassium 4.2 mmol/L (3.5-5.1); Sodium 137 mmol/L (136-145)
--- NOTE | 2017-11-05 09:49 | RAD ---
CHEST TWO VIEWS: History: Thoracentesis, infiltrate. Comparison: 11-03-17 FINDINGS: Right pleural effusion and airspace opacities similar. Left lung is clear. No pneumothorax. IMPRESSION: Similar appearance of the right basilar airspace opacity and layering effusion. POS: [facility]
[2017-11-05] MEDS: Docusate 100 MG CAP PO SCH (10:27)
[2017-11-05] MEDS: Famotidine 20 MG TAB PO SCH (10:27)
[2017-11-05] MEDS: Sodium Chloride 0.9% 1,000 ML IV SCH (10:27)
[2017-11-05] MEDS: Piperacillin/Tazobactam 4.5 GM in Sodium Chloride 0.9% 100 ML IVPB SCH ×2 (10:37→15:39)
[2017-11-05] MEDS: HYDROcodone/Acetaminophen 7.5/325 mg Tablet PO PRN (11:26)
[2017-11-05 13:33] VITALS: BP 110/58; TEMP 98
--- NOTE | 2017-11-05 21:54 | DIS ---
DATE OF ADMISSION: 11/03/2017 DATE OF DISCHARGE: 11/05/2017 ADMITTING DIAGNOSIS: Acute right parapneumonic effusion. DISCHARGE DIAGNOSIS: Acute right parapneumonic effusion, status post thoracentesis. SECONDARY DIAGNOSES: 1. Acute hypoxic respiratory failure. 2. Acute pleuritic chest pain. 3. Right lung pneumonia. CONSULTANTS: Involved in the care is Dr. Memo Beard, Pulmonary Critical Care. PROCEDURES DONE DURING THIS ADMISSION: Paracentesis with removal of 400 mL of exudative fluid. HISTORY OF PRESENT ILLNESS AND HOSPITAL COURSE: In brief, this is a 27-year-old young white male wit h known recent history of right pleural effusion, was drained and was discharged home with Augmentin and the patient developed persistent chest pain worsening with a fever of 101 and decided to come to the ER. When patient was noted to have a right pleural effusion with a normal white count, but had e levated fever. This patient was admitted and Pulmonary Critical Care was consulted who did a thorace ntesis with 400 mL of exudative fluid. Body fluid culture was sent which was still pending, but the patient was feeling fine. His pain was improved and was able to tolerate with Tylenol #3. The patie nt was initially started on vancomycin and Zosyn. As the patient was afebrile and no white count hellen vation. The patient was discharged after discussing with Pulmonary Critical Care. The patient was s table on the day of discharge and advised to continue for 10 more days and to follow up with Dr. Eduardo Don. PHYSICAL EXAMINATION: VITAL SIGNS: Day of discharge vitals, blood pressures are 113/62, heart rate is 100, respiratory rat e is 20, saturations 98%. GENERAL: The patient is moderately built, moderately nourished, does not appear to be in acute distr ess. CARDIOVASCULAR: S1, S2 normal. No murmurs, rubs or gallops. LUNGS: Bilateral air entry was equal. No wheezing, no crackles. ABDOMEN: Soft, nontender, no guarding, no rebound tenderness. Bowel sounds normal. MUSCULOSKELETAL: No calf tenderness. No pedal edema. No joint tenderness. No joint swelling. SKIN: No cyanosis, no erythema, no rash, no pallor. DISCHARGE MEDICATIONS: 1. Clindamycin 300 mg p.o. t.i.d. 2. Doxycycline 100 mg p.o. twice daily for 10 days. 3. Quetiapine 100 mg p.o. at bedtime. 4. Tylenol No. 3 Codeine of 300/15 mg 1 tablet q.6 hours was given. DISCHARGE INSTRUCTIONS: Continue activity as tolerated. Advised to follow up with primary care phys paul in 1 to 2 weeks. Advised to follow up with Dr. London Don in 1 week. Advised to continue a ctivity as tolerated. Advised to return to the ER if the patient develops any fever or worsening susana rtness of breath. I spent 35 minutes of this patient on day of discharge.
== END 2017-11-05 16:27 | disposition home or self-care (01) | DRG 871 ==
LOC: ERS 09:38 → ERHOLD 12:18 → 3SE 15:37
PROVIDERS: ADMIT Family Medicine; ATTEND Family Medicine
PROC: 0W993ZZ Drainage of Right Pleural Cavity, Percutaneous Approach (ICD-10-PCS; principal; 2017-11-03)
DX: A41.9 Sepsis, unspecified organism (principal); J18.9 Pneumonia, unspecified organism; J96.01 Acute respiratory failure with hypoxia; J91.8 Pleural effusion in other conditions classified elsewhere; E86.0 Dehydration; Z87.01 Personal history of pneumonia (recurrent); F17.210 Nicotine dependence, cigarettes, uncomplicated; E87.6 Hypokalemia; F10.10 Alcohol abuse, uncomplicated
CPT/HCPCS: 32555; 36415; 71045; 71046; 80053; 80202; 82945; 83605; 83615; 83986; 84157; 85025; 85060; 86140; 87070; 87116; 87205; 87206; 88112; 88305; 89051; 96365; J2270; J2543; J3370; J7050